=== PATIENT | female | born 1960 | race Hispanic/Latino ===

== ENCOUNTER 2018-08-15 23:54 | Emergency (ER) | payer SELFPAY ==
[~2018-08-15] VITALS: Ht 160 cm; Wt 78.0 kg
[2018-08-16 01:27] LABS: INFLUENZAE A&B ANTIGEN (RAPID) NEGATIVE (NEGATIVE); STREPTOCOCCUS GRP A ANTIGEN NEGATIVE (NEGATIVE)
[2018-08-16] MEDS ORDERED: ACETAMINOPHEN/CODEINE ELIX 120-12 MG/5 ML UDC NG ONE ×2 (01:30→03:30)
--- NOTE | 2018-08-16 01:51 | Diagnostic Imaging Report ---
EXAMINATION: CHEST 2 VIEWS INDICATION: COUGH/CHEST PAIN COMPARISON: None FINDINGS: TUBES and LINES: None. LUNGS: Lungs are well inflated. Mild perihilar, peribronchial thickening and perihilar streaky densities may reflect viral infection versus reactive airway disease. There is no evidence of consolidative pneumonia or pulmonary edema. PLEURA: No pleural effusion or pneumothorax. HEART AND MEDIASTINUM: The cardiomediastinal silhouette is unremarkable. BONES AND SOFT TISSUES: No acute osseous lesion. Soft tissues are unremarkable. UPPER ABDOMEN: No free air under the diaphragm. IMPRESSION: Mild reflect viral infection versus reactive airway disease. Signed by: Dr. Mona Hurst M.D. on 08/16/2018 1:48 AM
[2018-08-16] MEDS ORDERED: PREDNISONE20 MG PO (02:04)
[2018-08-16] MEDS ORDERED: TYLENOL WITH C1 EACH PO (02:04)
[2018-08-16 03:51] VITALS: BP 118/76
== END 2018-08-16 04:21 | disposition home or self-care (01) ==
LOC: ER 23:54
DX: R05 Cough (principal); B34.9 Viral infection, unspecified
CPT/HCPCS: 71046; 83518; 87070; 87400; 99283